=== PATIENT | male | born 1980 | race Two or more races ===

== ENCOUNTER 2024-06-11 13:37 | Emergency (ER) | payer MEDICAID, SELFPAY ==
[2024-06-11 13:39] VITALS: BMI 24.4
[2024-06-11 13:57] VITALS: BP 129/67; PULSE 91; RESP 16; TEMP 37.1; O2SAT 96; BMI 27.6
--- NOTE | 2024-06-11 14:08 | PD.EDRME ---
Rapid Medical Screening Exam RME Arrival date/time: 06/11/24 13:37 44-year-old male with medical history significant for hypothyroidism and methamphetamine abuse and homelessness presents for concerns for being out of his medication requesting refill has not taken his meds in months Chief Complaint: General Adult/Misc Complain Time Seen by Provider: 06/11/24 13:47 Vital signs: Vital Signs Temperature 98.8 F 06/11/24 13:57 Pulse Rate 91 06/11/24 13:57 Respiratory Rate 16 06/11/24 13:57 Blood Pressure 129/67 06/11/24 13:57 Pulse Oximetry (%) 96 06/11/24 13:57 Oxygen Delivery Method Room Air 06/11/24 13:57
[2024-06-11 14:48] LABS: Basophils # (Auto) 0.1 Thou/mm3 (0.0-0.2); Basophils % (Auto) 1 % (0-2.5); Eosinophils # (Auto) 0.1 Thou/mm3 (0.0-0.5); Eosinophils % (Auto) 1 % (0-10); Hematocrit 27.5 % (41.0-53.0); Hemoglobin 9.5 g/dL (13.5-16.0); Immature Granulocytes % (Auto) 0 % (0-0); Immature Granulocytes Auto 0.03 Thou/mm3 (0.00-0.00); Lymphocytes # (Auto) 2.3 Thou/mm3 (1.0-4.8); Lymphocytes % (Auto) 34 % (10-50); Mean Corpuscular HGB Conc 34.5 g/dl (31.0-37.0); Mean Corpuscular Hemoglobin 32.6 pg (25.0-35.0); Mean Corpuscular Volume 95 fL (80-100); Monocytes # (Auto) 0.6 Thou/mm3 (0.0-0.8); Monocytes % (Auto) 8 % (0-12); Neutrophils # (Auto) 3.8 Thou/mm3 (1.8-7.7); Neutrophils % (Auto) 55 % (37-80); Nucleated Red Blood Cell % 0 /100 WBC (0); Platelet Count 206 Thou/mm3 (140-440); RDW Standard Deviation 54.7 fL (35.1-43.9); Red Blood Count 2.91 Miln/mm3 (4.50-5.90)
[2024-06-11 15:38] LABS: Amphetamine/Methamp Scrn,U Positive (Negative); Barbiturate Screen,Urine Negative (Negative); Benzodiazepines Screen,Urine Negative (Negative); Benzoylecgonine Screen, Ur Negative (Negative); Fentanyl Screen,Urine Negative (Negative); Opiate Screen,Urine Negative (Negative); THC Screen,Urine Positive (Negative)
[2024-06-11 15:38] LABS: Alanine Aminotransferase 24 U/L (10-49); Albumin, Serum 4.2 gm/dL (3.5-5.0); Albumin/Globulin Ratio 1.6 (1.2-2.2); Alkaline Phosphatase 56 U/L (46-116); Anion Gap 8 (7-16); Aspartate Amino Transferase 54 U/L (0-34); BUN/Creatinine Ratio 15 Ratio (12-20); Bilirubin,Total 0.6 mg/dL (0.3-1.2); Blood Urea Nitrogen 21 mg/dL (9-23); Calcium 9.4 mg/dL (8.3-10.6); Calcium (Corrected) 9.4 mg/dL (8.5-10.1); Carbon Dioxide 29.2 mMol/L (20.0-31.0); Chloride 103 mMol/L (98-107); Creatinine (Component) 1.4 mg/dL (0.6-1.3); Estimated Creatinine Clearance 76.9 mL/min (>60); Free T4 (Free Thyroxine) 0.17 ng/dL (0.89-1.76); Globulin 2.7 gm/dL (2.3-3.5); Glucose 88 mg/dL (74-106); Osmolality,Calculated 281 (275-295); Potassium 3.7 mMol/L (3.4-5.1); Sodium 140 mMol/L (136-145); Thyroid Stimulating Hormone > 150.00 uIU/mL (0.55-4.78); Total Protein 6.9 gm/dL (5.7-8.2); eGFR > 60 See Note
== END 2024-06-11 16:02 | disposition left against medical advice (07) ==
LOC: SERX 14:14
PROVIDERS: Nurse Practitioner Primary Care; Emergency Provider Internal Medicine Cardiovascular Disease
DX: Z76.0 Encounter for issue of repeat prescription (principal); E03.9 Hypothyroidism, unspecified; Z53.29 Procedure and treatment not carried out because of patient's decision for other reasons; F15.10 Other stimulant abuse, uncomplicated
CPT/HCPCS: 36415; 80053; 80307; 84439; 84443; 85025; 99281

== ENCOUNTER 2024-06-12 18:51 | Emergency (ER) | payer MEDICAID, SELFPAY ==
[2024-06-12 19:45] VITALS: BP 128/82; PULSE 75; RESP 18; TEMP 36.8; O2SAT 99
--- NOTE | 2024-06-12 19:54 | XR_ITS ---
Examination: Thyroid sonography complete Technique: Grayscale sonographic images thyroid lobes with color flow analysis Exam date and time: June 12, 20242034 hrs. Indications: Elevated TSH on laboratory examination today. Findings: Right thyroid 2.4 cm No solid nodules Left thyroid 2.7 cm No solid nodules Impression: Negative for thyromegaly Negative for thyroid nodules
--- NOTE | 2024-06-12 19:55 | PD.EDRME ---
Rapid Medical Screening Exam RME Arrival date/time: 06/12/24 18:51 44 yo m present to ED for c/o elevated TSH, seen yesterday but eloped I have greeted and performed a focused initial assessment of this patient. A comprehensive ED assessment and evaluation of the patient, analysis of all test results, and completion of the medical decision making process will be conducted by additional ED providers. Chief Complaint: General Adult/Misc Complain Time Seen by Provider: 06/12/24 19:41 Vital signs: Vital Signs Temperature 98.2 F 06/12/24 19:45 Pulse Rate 75 06/12/24 19:45 Respiratory Rate 18 06/12/24 19:45 Blood Pressure 128/82 06/12/24 19:45 Pulse Oximetry (%) 99 06/12/24 19:45 Oxygen Delivery Method Room Air 06/12/24 19:45
[2024-06-12 20:55] LABS: Basophils # (Auto) 0.1 Thou/mm3 (0.0-0.2); Basophils % (Auto) 2 % (0-2.5); Eosinophils # (Auto) 0.1 Thou/mm3 (0.0-0.5); Eosinophils % (Auto) 2 % (0-10); Hematocrit 31.3 % (41.0-53.0); Hemoglobin 10.6 g/dL (13.5-16.0); Immature Granulocytes % (Auto) 1 % (0-0); Immature Granulocytes Auto 0.03 Thou/mm3 (0.00-0.00); Lymphocytes # (Auto) 2.1 Thou/mm3 (1.0-4.8); Lymphocytes % (Auto) 34 % (10-50); Mean Corpuscular HGB Conc 33.9 g/dl (31.0-37.0); Mean Corpuscular Hemoglobin 32.2 pg (25.0-35.0); Mean Corpuscular Volume 95 fL (80-100); Monocytes # (Auto) 0.5 Thou/mm3 (0.0-0.8); Monocytes % (Auto) 8 % (0-12); Neutrophils # (Auto) 3.3 Thou/mm3 (1.8-7.7); Neutrophils % (Auto) 54 % (37-80); Nucleated Red Blood Cell % 0 /100 WBC (0); Platelet Count 200 Thou/mm3 (140-440); RDW Standard Deviation 55.3 fL (35.1-43.9); Red Blood Count 3.29 Miln/mm3 (4.50-5.90); White Blood Count 6.2 Thou/mm3 (3.8-10.6)
[2024-06-12 21:30] LABS: T4 (Thyroxine) 0.5 mcg/dL (4.5-10.9)
[2024-06-12 21:35] LABS: Alanine Aminotransferase 25 U/L (10-49); Albumin, Serum 4.8 gm/dL (3.5-5.0); Albumin/Globulin Ratio 1.7 (1.2-2.2); Alkaline Phosphatase 57 U/L (46-116); Anion Gap 7 (7-16); Aspartate Amino Transferase 54 U/L (0-34); BUN/Creatinine Ratio 12 Ratio (12-20); Bilirubin,Total 1.1 mg/dL (0.3-1.2); Blood Urea Nitrogen 17 mg/dL (9-23); Carbon Dioxide 29.9 mMol/L (20.0-31.0); Chloride 100 mMol/L (98-107); Creatinine (Component) 1.4 mg/dL (0.6-1.3); Globulin 2.9 gm/dL (2.3-3.5); Glucose 102 mg/dL (74-106); Osmolality,Calculated 275 (275-295); Potassium 3.6 mMol/L (3.4-5.1); Sodium 137 mMol/L (136-145); Total Protein 7.7 gm/dL (5.7-8.2); eGFR > 60 See Note
[2024-06-12 22:02] LABS: Thyroid Stimulating Hormone > 150.00 uIU/mL (0.55-4.78)
--- NOTE | 2024-06-12 23:15 | PC.NURSE ---
PT HERE WANTING THYROID MEDS STATES THAT HE IS ON METH BUT HE FEELS HE NEEDS HIS THYROID MEDS. IN ROOM WITH SIGNIFICANT OTHER
[2024-06-12 23:18] VITALS: BP 127/82; PULSE 60; RESP 19; TEMP 36.4; O2SAT 98
--- NOTE | 2024-06-13 00:16 | PRELIM_ITS ---
Thyroid ultrasound. June 12, 20243 hours Clinical history: elevated tsh Comparison: No prior study is available for comparison. Findings: The right lobe of the thyroid measures 2.4 x 0.9 x 0.6 cm and heterogenous hyperechoic in texture. The left lobe of the thyroid measures 2.7 x 0.9x 1.1cm and heterogenous hyperechoic in texture. The isthmus measures 0.2 mm. No solid or cystic mass lesion is noted. Both lobes of the thyroid demonstrate normal color flow signals. No significant cervical lymph nodes are noted. Impression: Heterogenous hyperechoic atrophic thyroid gland. No suspicious nodules. TIRADS Score: 2 TI-RADS 1: Normal thyroid gland TI-RADS 2: Benign conditions (0% risk of malignancy) TI-RADS 3: Probably benign nodules (<5% malignancy) TI-RADS 4: Suspicious nodules (5-80% malignancy) TI-RADS 4a: Undetermined (5-10% malignancy) TI-RADS 4b: Suspicious (10-80% malignancy) TI-RADS 5: Probably malignant nodules (>80% malignancy) TI-RADS 6: Biopsy proven malignancy Report Electronically Signed By: Schuyler Bell 06/13/2024 12:16:04 AM [EST]
[2024-06-13 03:00] VITALS: BP 105/65; PULSE 52; RESP 19; TEMP 36.4; O2SAT 100
--- NOTE | 2024-06-13 05:41 | PC.NURSE ---
synthroid not avaliable in [facility] will contact pharmacy
[2024-06-13 06:04] VITALS: BP 115/60; PULSE 56; RESP 18; TEMP 36.7; O2SAT 98
--- NOTE | 2024-06-13 06:16 | PC.NURSE ---
called house [facility] will bring synthroid
[2024-06-13] MEDS: LEVOTHYROXINE SODIUM 125 MCG TABLET PO (06:40)
--- NOTE | 2024-06-27 01:40 | PD.EDDIZZY ---
ED Dizzyness RME/HPI General Chief Complaint: General Adult/Misc Complain Stated Complaint: NEEDS THYROID MEDICATION Time Seen by Provider: 06/12/24 19:41 Source: patient, family and RN notes reviewed Arrival date/time: 06/12/24 18:51 Mode of arrival: ambulatory Limitations: no limitations RME / HPI RME / HPI Narrative: 06/12/24 18:51 44 yo m present to ED for c/o elevated TSH, seen yesterday but eloped I have greeted and performed a focused initial assessment of this patient. A comprehensive ED assessment and evaluation of the patient, analysis of all test results, and completion of the medical decision making process will be conducted by additional ED providers. HPI 44-year-old male with history of thyroid disease who has not taken his thyroid medication for 1 month presenting to the emergency department with his significant other for increase in heart rate. Patient has heart rate increased which has been on and off intermittently but otherwise no chest pain, no shortness of breath, no recent travel, patient does not actively smoke at this time and says that the symptoms were intermittently but currently not present. Otherwise no new weight gain or weight loss. Patient has no vertigo. Patient has similar symptoms in the past. His symptoms are about the same but increase slightly today. Nothing is relieving it, nothing is making it worse. Otherwise no difficulty walking. No syncope. No associated nausea vomiting or diarrhea. No difficulty walking. MD complaint: lightheadedness Related Data Previous Rx's ?Medication ?Instructions ?Recorded acetaminophen 500 mg tablet 1,000 mg (2 x 500 mg) PO Q6H PRN 06/25/24 fever or pain 20 days #60 tabs ammonium lactate 5 % lotion 1 applic topical BID PRN dry skin 06/25/24 (Lac-Hydrin Five) #226 grams levothyroxine 175 mcg tablet 175 mcg PO QDAY #30 tabs 06/25/24 (Levo-T) Allergies Allergy/AdvReac Type Severity Reaction Status Date / Time No Known Allergies Allergy Verified 06/25/24 13:37 Review of Systems Review of Systems Systems Reviewed: All systems reviewed, normal except as documented ED Exam General Limitations: Present no limitations General appearance: Present alert and in no apparent distress Head Head exam: Present atraumatic Eye Eye exam: Present normal appearance, PERRL and EOMI ENT ENT exam: Present normal exam, normal oropharynx and mucous membranes moist Neck Neck exam: Present normal inspection, full ROM and trachea midline Chest Chest inspection: Present normal inspection and symmetric chest wall rise Respiratory Respiratory exam: Present normal lung sounds bilaterally Cardiovascular Cardiovascular exam: Present regular rate, normal rhythm and normal heart sounds Abdominal Exam Abdominal exam: Present soft and normal bowel sounds Extremities Exam Extremities exam: Present normal inspection and full ROM Back Exam Back exam: Present normal inspection and full ROM Neurological Exam Neurological exam: Present alert, oriented X3 and CN II-XII intact Psychiatric Psychiatric exam: Present normal affect and normal mood Skin Skin exam: Present warm, dry, intact and normal color Course Quality Measures none Orders Category Date Time Status US thyroid Stat Exams 06/12/24 19:54 Completed CBC Stat Lab 06/12/24 20:20 Completed CMP [Comprehensive Metabolic Panel] Stat Lab 06/12/24 20:20 Completed Free T4 (Free Thyroxine) Stat Lab 06/12/24 20:20 Completed T4 (Thyroxine) Stat Lab 06/12/24 20:20 Completed TSH [Thyroid Stimulating Hormone] Stat Lab 06/12/24 20:20 Completed Levothyroxine Sodium [Synthroid] Med 06/13/24 05:28 Discontinued 125 mcg PO X1 ONE Vital Signs Vital signs: Vital Signs Temperature 98.2 F 06/12/24 19:45 Pulse Rate 75 06/12/24 19:45 Respiratory Rate 18 06/12/24 19:45 Blood Pressure 128/82 06/12/24 19:45 Pulse Oximetry (%) 99 06/12/24 19:45 Oxygen Delivery Method Room Air 06/12/24 19:45 Procedures -ED EKG Interpretation #1: Date of EK06/17/24 Rate: 85 Interpretation: Interpreted by me EKG Impression: Normal sinus rhythm Additional EKG comment: Incomplete bundle branch block. No elevations or depressions. Normal QTc of 471. Impression old right bundle branch block. No ST elevation NE. Dizziness Patient data External records reviewed:: [facility] previous records Clinical information provided by:: patient and spouse Social determinants that could affect healthcare access:: none Patient has the following chronic illnesses:: History of thyroid disease. How is presenting disease/condition affected by chronic disease/condition?: exacerbated by Evaluation data The following diagnostics were reviewed and interpreted by me:: lab results (Patient had elevated thyroid as an outpatient.) and radiology exam(s) Lab and/or radiology exams considered but not ordered:: none Interpretation Summary: Findings: Thyroid ultrasound Right thyroid 2.4 cm No solid nodules Left thyroid 2.7 cm No solid nodules Impression: Negative for thyromegaly Negative for thyroid nodules Medications / Prescriptions Medications or Prescriptions considered but not ordered:: None Medication administrations:: Medication Administration History Discontinued Medications Levothyroxine Sodium (Levothyroxine Sodium 125 Mcg Tablet) 125 mcg PO X1 ONE Stop: 06/13/24 05:29 Last Admin: 06/13/24 06:40 Dose: 125 mcg Documented By: BD As above. Consultations Consultation(s) initiated? (list below): Yes Consultation #1 (Physician, Specialty, Details): Discussed with hospitalist Dr. Acuna on-call who recommends restarting his thyroid medication. The patient can follow-up with the [facility] as an outpatient. Diagnosis Dizziness Differential Diagnosis: other (Medication noncompliance, dizziness, dehydration, electrolyte abnormality,) Most likely diagnosis given after review of the tests above:: Medication noncompliant, Admission Indicated Admission indicated?: not indicated Admission Request Was there a request for admission?: No Disposition Plan Disposition Plan: Discharge Discharge Attestation Discharge Attestation: The patient and all family members were given an opportunity to ask questions and understood the discharge instructions. Discharge instructions specifically effects, indications for sooner follow up or return to the emergency department, and the expected course of current diagnosis. Patient condition: Stable Discharge Plan Plan Patient Disposition: HOME (Self Care) Patient condition on transfer: Stable Prescriptions/Referrals Prescriptions/Med Rec: No Action levothyroxine [Levo-T] 175 mcg tablet 175 mcg PO QDAY Qty: 30 3RF acetaminophen 500 mg tablet 1,000 mg PO Q6H PRN (Reason: fever or pain) 20 Days Qty: 60 0RF Lac-Hydrin Five 5 % lotion 1 applic topical BID PRN (Reason: dry skin) Qty: 226 0RF Referrals: [facility] [Outside] - In 1 week (Please call for an appointment this week so that you can have your blood drawn TSH and other thyroid studies in the next 30 days.) No Primary/Family,Physician [Primary Care Provider] - In 1 week Problem List Clinical Impression: Hypothyroidism Patient/Caregiver Discharge Instructions Education Materials: ED Hypothyroidism Additional Instructions: Even though you have been discharged from the Emergency Department, there are several things that you should do to ensure that you receive proper care: 1. DO READ your discharge instructions as these contain important information concerning your medical care. 2. If medication has been prescribed for your condition, fill the prescription as soon as possible and follow the directions on the medication. 3. RETURN AT ONCE TO THE EMERGENCY DEPARTMENT if you have any problems or concerns. These include but are not limited to fever, worsening pain(belly, chest, head, etc?), worsening shortness of breath, uncontrollable bleeding, inability to tolerate food and water, or any condition that makes you question your well-being. Also, if your symptoms do not improve in the next 12-24 hours, return to the ER or seek medical care immediately. 4. Be sure to follow up with your regular physician or specialist as instructed at discharge as this is the best way to ensure that you receive the very best of care. If you do not have a primary care physician, please contact a physician group and make an appointment. 5. Please visit [employer] for coupons regarding your prescriptions. It is a free service for you to use and can help reduce the cost of your medication. We would like to thank you for coming today and our hope is that we served you and your family well during your stay. You need to take your medication to avoid complications of hypothyroidism. Print Language: Nigerien Stand Alone Forms: Cindy Award Info., Patient Portal Info Letter
== END 2024-06-13 06:42 | disposition home or self-care (01) ==
PROVIDERS: Physician Assistant; Emergency Provider Emergency Medicine
DX: E03.9 Hypothyroidism, unspecified (principal)
CPT/HCPCS: 36415; 76536; 80053; 84436; 84439; 84443; 85025; 99284; A9270

== ENCOUNTER 2024-06-25 13:23 | Outpatient (AMB) | payer MEDICAID, SELFPAY ==
[2024-06-25 13:36] VITALS: BP 117/73; PULSE 74; RESP 18; TEMP 36.8; O2SAT 98
--- NOTE | 2024-06-25 13:36 | PD.RESCLINIC ---
Vital Signs 06/25/24 13:36 Weight 95.028 kg Weight Measurement Method Standing Scale BP 117/73 Blood Pressure Source Automatic Cuff Blood Pressure Location Right Upper Arm Position Sitting Respiration 18 Pulse 74 Pulse Source Monitor Temp 98.2 F Temp Source Temporal Artery Scan Pulse Oximetry (%) 98 Oxygen Delivery Method Room Air Allergies/Meds Allergies & Medications Allergies No Known Allergies Allergy (Verified 06/25/24 13:37) Medication Reconciliation acetaminophen 500 mg tablet 1,000 mg (2 x 500 mg) PO Q6H PRN fever or pain 20 days #60 tabs 06/25/24 [Rx] ammonium lactate 5 % lotion (Lac-Hydrin Five) 1 applic topical BID PRN dry skin #226 grams 06/25/24 [Rx] levothyroxine 175 mcg tablet (Levo-T) 175 mcg PO QDAY #30 tabs 06/25/24 [Rx] MA Intake Visit Data Collection New Patient or Established: Established Patient (seen at [facility] within 3 years) Seen by Clinical Staff ONLY (RN/MA): No Pain Present Currently: No Pain scale:: 0 Pain Scale Used: Navarro-Keenan/[employer] Required: No PCP or OBGYN visit in last 3 months: No Hx Now: No Do You Feel Safe at Home: Yes Authorities Contacted: N/A Smoking Status Smoking Status: Current every day smoker Cessation Counseling Provided: ALLY was advised that quitting smoking is the single most important factor to protect the health of themselves and their family. Discussed the benefits of quitting smoking with patient. Encouraged patient to quit smoking and provided Cessation assistance materials and resources. Tobacco Use: Cigarette Years smoked: 10 Are you interested in quitting?: Yes Would you like additional Smoking Cessation Counseling?: Yes Immunization / Flu Flu Vaccine in the Last 12 Months: No Flu Vaccine Exclusion Criteria: No Exclusion Criteria Past Medical History Past Medical History CARDIAC: Negative Congestive Heart Failure RESPIRATORY: Negative Chronic Obstructive Pulmonary Disease (COPD) GASTROINTESTINAL: Positive Gastrointestinal Disorders and Hepatitis GENITOURINARY: Negative Renal Disease ENDOCRINE: Positive Endocrine Disorders, Hyperthyroidism and Hypothyroidism; Negative Diabetes Mellitus Type 1 or Diabetes Mellitus Type 2 PSYCHO/SOCIAL: Positive Schizophrenia and Recreational Drug Use (meth) OTHER HISTORY: Positive Hepatitis C Social History SMOKING STATUS: Smoking status: Current every day smoker ALCOHOL: Alcohol Intake: Never Patient Portal Questionaires Social History Tobacco History Smoking Status: Current every day smoker Alcohol History Alcohol Intake: Never Domestic Abuse History Do You Feel Safe at Home: Yes Review of Systems Report any current symptoms Only answer those that you have currently: Past Medical History Past Medical History Have you ever been diagnosed with any of the following: Cardiology Problems Congestive Heart Failure: No Respiratory Problems Chronic Obstructive Pulmonary Disease (COPD): No Stomache/Intestinal Problems Hepatitis: Yes Genital/Urinary Problems Renal Disease: No Endocrine Problems Diabetes Mellitus Type 1: No Diabetes Mellitus Type 2: No Hyperthyroidism: Yes Hypothyroidism: Yes Psychologic Problems Schizophrenia: Yes Recreational Drug Use: Yes (meth) Other Problems Hepatitis C: Yes History of Present Illness HPI Narrative Mr. Escobar is a 44-year-old male with past medical history of severe hypothyroidism with medication noncompliance and methamphetamine/THC use who presented to [facility] clinic on 06/25/2024 with a chief complaint of requesting medication refill. Patient complained of feeling cold all the time, complains of dry skin and itching, patient reports that he was recently seen in the [facility] emergency department, where his levothyroxine was refilled but he was unable to procure the medication. Patient's vitals reviewed, blood pressure reviewed vitals within normal limits, no bradycardia noted. Patient is alert and oriented x 3, no obvious signs of myxedema, or dangerous signs of severe clinical hypothyroidism noted. Per chart review on labs patient's TSH greater than 150, free T4 0.20, T4 0.5. Patient reports that he is homeless, it is hard for him to comply with medications. Patient does report using a custodial at night to stay, reports that he also has a girlfriend who assists him with his appointments. Otherwise patient is independent with ADLs. Patient also complains of lower back pain, paraspinal tenderness noted on examination, patient educated on rest and use Tylenol Extra Strength as needed. Patient advised to avoid [id number] NSAIDs. Patient verbalized understanding patient also counseled on weekly dosing of thyroid medication, started on home thyroid dose 175 mcg patient educated on taking thyroid medications early in the morning and avoiding other medications and food at the same time. Patient verbalized understanding. Patient instructed to follow-up in 1 month after adhering to medication. Review of Systems Review of Systems Systems Reviewed: All systems reviewed, normal except as documented Objective/Exam Narrative Physical exam: Physical Exam General: Awake and in no acute distress. Conversational and non-toxic appearing. Shivering, complains of cold. HEENT: Normocephalic, atraumatic, mucous membranes moist. Heart: Regular rate and rhythm, no murmurs. Lungs: Clear to auscultation with no wheezing or crackles. Abdomen: Soft, nondistended, nontender, positive bowel sounds. ?No guarding or rebound tenderness. Paraspinal tenderness. Neurologic: Alert and oriented x3, no gross neurological deficit, and patient able to move all 4 extremities. Extremities: No edema. Skin: No rash or ecchymoses. Dry skin noted with multiple excoriation weeks. Assessment & Plan Diagnosis / Problem List (1) Severe hypothyroidism: Status: Acute Assessment & Plan: -Complained of feeling cold all the time, complains of dry skin and itching, patient reports that he -was recently seen in the [facility] emergency department, where his levothyroxine was refilled but he was unable to procure the medication. -Vitals reviewed, blood pressure reviewed vitals within normal limits, no bradycardia noted. -06/12/2024: TSH greater than 150, free T4 0.20, T4 0.5. -06/12/2024: Thyroid US: Right thyroid 2.4 cm No solid nodules Left thyroid 2.7 cm No solid nodules Plan: - Prescribed levothyroxine 175 mcg daily - Educated on taking medication early in the morning, avoiding other medications and food at the same time - Counseled on weekly dosing of thyroid medication - Counseled extensively on importance of medication adherence and follow-up with [facility] as needed - Prescribed Lac-Hydrin five lotion for dry skin. - Counseled on going to the ER if symptoms worsen. - Patient instructed to follow-up in 1 month after adhering to medication. (2) Sheltered homelessness: Status: Acute Assessment & Plan: -Reports using a custodial at night to stay, reports that he also has a girlfriend who assists him with his appointments, independent with ADLs. -Reports that he is homeless, it is hard for him to comply with medications. Plan: - Educated on local resources - Educated on hand hygiene, importance of maintenance of hygiene - Educated on refraining from methamphetamine use (3) Back pain: Status: Acute Qualifiers: Back pain laterality: midline Back pain location: low back pain Chronicity: acute Sciatica presence: without sciatica Qualified Code(s): M54.50 - Low back pain, unspecified Assessment & Plan: -Complains of lower back pain, paraspinal tenderness noted on examination. Plan: - Prescribed Tylenol Extra Strength as needed - Educated on management of back pain Plan Will follow-up with patient in 1 month, instructed to take medications as prescribed. Case discussed with Attending Dr. Carrillo. America Britton PGY1 Disclaimer: This note was dictated by speech recognition. Minor errors in conveyor system dispatcher may be present due to voice recognition software. Additional Assessment Internal Medicine Attending Note: Case discussed with and agree with note and management plan of Resident Physician as per Resident's Note above. Issues of concern for present visit are as follows: New patient to clinic. History of severe hypothyroidism. Has had multiple ER visits needing medication refills. Notes feeling cold, dry skin, pruritus. Review of labs shows TSH greater than 150 with free T4. of 0.2 and a total T4 of 0.5.. Complaining of lower back pain, paraspinal tenderness. Social determinants of health at play, patient is homeless, staying in a custodial at night. Sleeps on a cot likely contributing to lower back pain. Has difficulty getting his medications and difficulty with compliance. Does have history of methamphetamine and THC use. Patient is resumed on levothyroxine 175 mcg daily. We will have patient follow-up in 4 to 6 weeks to assess compliance. Will need a recheck of TSH and free T4 in 6 to 8 weeks. Lac-Hydrin lotion prescribed for dry skin. Tylenol for low back pain along with stretches and conservative treatment. Jerod Carrillo MD Physician Billing New Patient New Patient: E/M Level 3-CPT 00120 Office Procedures [facility] Level of Care Nursing/Assessment Patient Status: Established Patient Nursing Assessment/Reassessment: Medication Reconciliation, Update PMH in EMR and Vital Signs Coordination of Care: Complex Care and Chronic Disease 1-5, Consent,records obtained, informed consent and Ref for ancillary service Established Patient Charge Established Patient Point Assignment: 80 Established Patient Point Charge: EP Level 3 (80-115)
== END 2024-06-25 14:36 | disposition home or self-care (01) ==
LOC: HODAHC 13:23
PROVIDERS: Supervising Provider Internal Medicine
DX: E03.9 Hypothyroidism, unspecified (principal); Z59.01 Sheltered homelessness; M54.50 Low back pain, unspecified
CPT/HCPCS: 99213; G0463

== ENCOUNTER 2025-02-16 13:17 | Outpatient (AMB) | payer MEDICAID, SELFPAY ==
--- NOTE | 2025-02-16 13:32 | PD.RESCLINIC ---
Vital Signs 02/16/25 13:33 Weight 96.162 kg Weight Measurement Method Standing Scale BP 112/76 Blood Pressure Source Automatic Cuff Blood Pressure Location Right Upper Arm Position Sitting Respiration 18 Pulse 72 Pulse Source Monitor Temp 97.7 F Temp Source Temporal Artery Scan Pulse Oximetry (%) 96 Oxygen Delivery Method Room Air Allergies/Meds Allergies & Medications Allergies No Known Allergies Allergy (Verified 02/16/25 13:34) Medication Reconciliation ammonium lactate 5 % lotion (Lac-Hydrin Five) 1 applic topical BID PRN dry skin #226 grams 06/25/24 [Rx Confirmed 02/16/25] levothyroxine 175 mcg capsule 175 mcg PO QDAY #30 caps 02/16/25 [Rx] MA Intake Visit Data Collection New Patient or Established: Established Patient (seen at [facility] within 3 years) Seen by Clinical Staff ONLY (RN/MA): No Pain Present Currently: No Pain scale:: 0 Pain Scale Used: Navarro-Keenan/Numerical L[employer] Tender Required: No PCP or OBGYN visit in last 3 months: Yes Hx Now: No Do You Feel Safe at Home: Yes Authorities Contacted: N/A Smoking Status Smoking Status: Current every day smoker Cessation Counseling Provided: ALLY was advised that quitting smoking is the single most important factor to protect the health of themselves and their family. Discussed the benefits of quitting smoking with patient. Encouraged patient to quit smoking and provided Cessation assistance materials and resources. Tobacco Use: Cigarette and Cigar Years smoked: 10 Are you interested in quitting?: Yes Would you like additional Smoking Cessation Counseling?: Yes Immunization / Flu Flu Vaccine in the Last 12 Months: No Flu Vaccine Exclusion Criteria: Refused by Patient Past Medical History Past Medical History CARDIAC: Negative Congestive Heart Failure RESPIRATORY: Negative Chronic Obstructive Pulmonary Disease (COPD) GASTROINTESTINAL: Positive Gastrointestinal Disorders and Hepatitis GENITOURINARY: Negative Renal Disease ENDOCRINE: Positive Endocrine Disorders, Hyperthyroidism and Hypothyroidism; Negative Diabetes Mellitus Type 1 or Diabetes Mellitus Type 2 PSYCHO/SOCIAL: Positive Schizophrenia and Recreational Drug Use (meth) OTHER HISTORY: Positive Hepatitis C Social History SMOKING STATUS: Smoking status: Current every day smoker ALCOHOL: Alcohol Intake: Never Patient Portal Questionaires Social History Tobacco History Smoking Status: Current every day smoker Alcohol History Alcohol Intake: Never Domestic Abuse History Do You Feel Safe at Home: Yes Review of Systems Report any current symptoms Only answer those that you have currently: Past Medical History Past Medical History Have you ever been diagnosed with any of the following: Cardiology Problems Congestive Heart Failure: No Respiratory Problems Chronic Obstructive Pulmonary Disease (COPD): No Stomache/Intestinal Problems Hepatitis: Yes Genital/Urinary Problems Renal Disease: No Endocrine Problems Diabetes Mellitus Type 1: No Diabetes Mellitus Type 2: No Hyperthyroidism: Yes Hypothyroidism: Yes Psychologic Problems Schizophrenia: Yes Recreational Drug Use: Yes (meth) Other Problems Hepatitis C: Yes History of Present Illness HPI Narrative Mr. Escobar is a 44-year-old male with past medical history of severe hypothyroidism with medication noncompliance and methamphetamine/THC use who presented to [facility] health clinic on 06/25/2024 with a chief complaint of requesting medication refill. Patient complained of feeling cold all the time, complains of dry skin and itching, patient reports that he was recently seen in the [facility] emergency department, where his levothyroxine was refilled but he was unable to procure the medication. Patient's vitals reviewed, blood pressure reviewed vitals within normal limits, no bradycardia noted. Patient is alert and oriented x 3, no obvious signs of myxedema, or dangerous signs of severe clinical hypothyroidism noted. Per chart review on labs patient's TSH greater than 150, free T4 0.20, T4 0.5. Patient reports that he is homeless, it is hard for him to comply with medications. Patient does report using a fpc at night to stay, reports that he also has a girlfriend who assists him with his appointments. Otherwise patient is independent with ADLs. Patient also complains of lower back pain, paraspinal tenderness noted on examination, patient educated on rest and use Tylenol Extra Strength as needed. Patient advised to avoid [id number]-[id number] NSAIDs. Patient verbalized understanding patient also counseled on weekly dosing of thyroid medication, started on home thyroid dose 175 mcg patient educated on taking thyroid medications early in the morning and avoiding other medications and food at the same time. Patient verbalized understanding. Patient instructed to follow-up in 1 month after adhering to medication. 02/16/25: The patient presented today requesting a follow-up on thyroid levels.The patient was examined and assessed with his partner present. He has been incarcerated for several months and is unaware of the current dosage of his medications while in long term. He reports symptoms including itchiness, dry skin, fatigue, feeling unrefreshed after sleep, and a persistent sensation of being cold. He also mentions an episode of right-sided edema prior to his incarceration, which has since resolved. The patient is concerned that his thyroid hormone levels may have dropped again. He denies experiencing disorientation, weight changes, constipation, muscle or joint pain, depression, or irritability.Additionally, the patient reports concern for possible sleep apnea. He describes feeling unrefreshed upon waking, and his partner notes multiple episodes of gasping for air and complaints of shortness of breath during sleep. The patient has experienced intermittent shortness of breath and a dry cough over the past few weeks but denies recent sick contacts, fever, chills, or diaphoresis. 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 Advise follow-up in 2 weeks for TSH lab results and general workup. Recommend chest X-ray due to the patient's history of intermittent shortness of breath and chronic cigarette and marijuana smoking.Encourage continued alcohol and smoking cessation, as the patient has been clean from meth and alcohol for the past few months. Objective/Exam Narrative Physical exam: General: Alert, no acute distress.Conversational and non-toxic appearing. Skin: Warm, dry, intact. No rash or ecchymoses. Head: Normocephalic, atraumatic. Eye: Normal conjunctiva, PERRL. Throat: Oral mucosa moist. No obvious lesions in oropharynx. Cardiovascular: Regular rate and rhythm, no murmur, +S1/S2. Respiratory: Lungs are clear to auscultation, respirations unlabored, no crackles, no wheezing. Gastrointestinal: Soft, nontender, non-distended. No guarding or rebound tenderness. Extremities: No edema, no cyanosis, no clubbing. Neuro: Alert and oriented x3.No focal deficits observed. Conversant, moving all extremities. No overt cerebellar signs/incoordination. Psychiatric: Cooperative, appropriate affect Assessment & Plan Diagnosis / Problem List (1) Severe hypothyroidism: Status: Acute Assessment & Plan: -Complained of feeling cold all the time, complains of dry skin and itching, patient reports that he was recently seen in the [facility]] emergency department, where his levothyroxine was refilled but he was unable to procure the medication. -Vitals reviewed, blood pressure reviewed vitals within normal limits, no bradycardia noted. -06/12/2024: TSH greater than 150, free T4 0.20, T4 0.5. -06/12/2024: Thyroid US: Right thyroid 2.4 cm No solid nodules Left thyroid 2.7 cm No solid nodules -02/16/2025: Continues to reports symptoms including itchiness, dry skin, fatigue, feeling unrefreshed after sleep, and a persistent sensation of being cold. Follow-up thyroid panel in 2 weeks Plan: - Prescribed levothyroxine 175 mcg daily- comsider increase dosage upon f/u thyroid panel results - Educated on taking medication early in the morning, avoiding other medications and food at the same time - Counseled on weekly dosing of thyroid medication - Counseled extensively on importance of medication adherence and follow-up with [facility] as needed - Counseled on going to the ER if symptoms worsen. - Patient instructed to follow-up in 2 weeks after adhering to medication. (2) Sheltered homelessness: Status: Acute Assessment & Plan: -Reports using a fpc at night to stay, reports that he also has a girlfriend who assists him with his appointments, independent with ADLs. -Reports that he is homeless, it is hard for him to comply with medications. Plan: - Educated on local resources - Educated on hand hygiene, importance of maintenance of hygiene - Educated on refraining from methamphetamine use (3) Annual physical exam: Status: Acute Assessment & Plan: Order a complete blood work to assess patient baseline blood work seen returning for Incarceration Plan: - Follow-up A1c, CHEM panel, CMP and CBC results in 2 weeks (4) SOB (shortness of breath): Status: Acute Assessment & Plan: The patient has experienced intermittent shortness of breath and a dry cough over the past few weeks but denies recent sick contacts, fever, chills, or diaphoresis. 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 Upon physical examination patient was afebrile, lungs was clear to auscultation with no wheezing and crackles. 0f notes, the patient reports concern for possible sleep apnea. Per patient report she noticed snoring loudly, patient also describes feeling unrefreshed upon waking, and his partner notes multiple episodes of gasping for air and complaints of shortness of breath during sleep. The fatigue, constant tireness may be related to hypothyroidism. Will consider polysomnography referral once hypothyroidism stabilize - STOP-BANG 5 points-high risk for COLIN Plan: - Follow up Chest X ray in 2weeks - Advised patient to abstain from cigarette smoking and marijuana use - Advised patient to return to ED if you have another episode of shortness of breath. - Consider polysomnography referral, after patient hypothyroidism is stabilized. Orders: Orders Glycohemoglobin w (eAG) Today Comprehensive Metabolic Panel Today Z00.00 - Encounter for general adult medical examination without abnormal findings CBC Today T4 (Thyroxine) Today E03.9 - Hypothyroidism, unspecified CBC Today Z00.00 - Encounter for general adult medical examination without abnormal findings XR chest 2V Today R06.02 - Shortness of breath Thyroid Stimulating Hormone Today E03.9 - Hypothyroidism, unspecified Glycohemoglobin w (eAG) Today Z00.00 - Encounter for general adult medical examination without abnormal findings Additional Plan Patient assessed under supervision of attending physician Dr. Mariaelena Ta MD PGY-1, Internal Medicine Please note: this document was transcribed using voice recognition technology; minor inaccuracies may be present. Office Procedures [facility] Level of Care Nursing/Assessment Patient Status: Established Patient Nursing Assessment/Reassessment: Medication Reconciliation, Update PMH in EMR and Vital Signs Coordination of Care: Complex Care and Chronic Disease 1-5, Complex Care/Chronic Disease 5 or more, Consent,records obtained, informed consent, Lab and Imaging orders, Results/Orders obtained and Staff clarify orders Established Patient Charge Established Patient Point Assignment: 125 Established Patient Point Charge: EP Level 4 (120-155)
[2025-02-16 13:33] VITALS: BP 112/76; PULSE 72; RESP 18; TEMP 36.5; O2SAT 96
== END 2025-02-16 14:33 | disposition home or self-care (01) ==
LOC: HODAHC 13:17
PROVIDERS: Supervising Provider Internal Medicine
DX: Z00.00 Encounter for general adult medical examination without abnormal findings (principal); E03.9 Hypothyroidism, unspecified; Z59.01 Sheltered homelessness; R06.02 Shortness of breath
CPT/HCPCS: 99214; G0463